=== PATIENT | female | born 1975 | race Caucasian/White ===

== ENCOUNTER → 2020-12-16 | Outpatient (CLI) | payer BC ==
[~2020-12-16] MED LIST: CRYSELLE-28 TA1 EACH PO; CYMBALTA60 MG PO; MULTIVITAMINS1 EAC1 PO; NORCO 5-325 TA1 EACH PO; OMNICEF 300 MG300 MG PO; SINGULAIR10 MG PO; VITAMIN B12 SL; XYZAL5 MG PO; ZOFRAN4 MG PO
[2020-12-16 12:03] LABS: HEMOGLOBIN 11.5 gm/dl (12.3-15.3); RED BLOOD COUNT 4.32 M/UL (4.00-5.10); WHITE BLOOD COUNT 12.4 K/UL (4.5-11.0)
[2020-12-16 13:00] LABS: BUN/CREATININE RATIO 11 (0-10)
== END ==
LOC: LAB 11:09
PROVIDERS: Physician Assistant
DX: N39.0 Urinary tract infection, site not specified (principal); R50.9 Fever, unspecified
CPT/HCPCS: 36415; 80048; 83605; 85025

== ENCOUNTER → 2020-12-16 | Outpatient (CLI) | payer BC | LOC: KOH-I 10:20 | DX: R50.9 Fever, unspecified (principal) | CPT/HCPCS: 71046 ==

== ENCOUNTER → 2020-12-19 | Outpatient (CLI) | payer BC ==
[2020-12-19 15:26] LABS: BUN/CREATININE RATIO 12 (0-10)
== END ==
LOC: LAB 14:19
PROVIDERS: Physician Assistant
DX: E87.6 Hypokalemia (principal)
CPT/HCPCS: 36415; 80048

== ENCOUNTER → 2020-12-21 | Outpatient (CLI) | payer BC | LOC: HEART 5 07:49 | DX: R00.2 Palpitations (principal); R00.0 Tachycardia, unspecified ==

== ENCOUNTER → 2021-03-08 | Outpatient (CLI) | payer BC | LOC: MAMO 12-29 15:00 | DX: Z12.31 Encounter for screening mammogram for malignant neoplasm of breast (principal) | CPT/HCPCS: 77063; 77067 ==

== ENCOUNTER → 2021-08-01 | Outpatient (CLI) | payer BC | LOC: LBRF 15:40 | DX: N39.0 Urinary tract infection, site not specified (principal) | CPT/HCPCS: 87086 ==

== ENCOUNTER → 2022-03-12 | Outpatient (CLI) | payer BC | LOC: MAMO 08:30 | DX: Z12.31 Encounter for screening mammogram for malignant neoplasm of breast (principal) | CPT/HCPCS: 77063; 77067 ==